=== PATIENT | female | born 1990 | race African-American/Black ===

== ENCOUNTER 2016-09-28 21:14 | Emergency (ER) | payer OTHER ==
[~2016-09-28] VITALS: Ht 170.2 cm; Wt 59.0 kg
[~2016-09-28 21:14] MED LIST: 3-DAY VAGINAL C21 GM VAGIN; ACYCLOVIR400 MG ORAL; BACTRIM-DS1 EA ORAL; CEPHALEXIN500 MG ORAL; CLINDAMYCIN PHO30 GM TP; DIFLUCAN100 MG ORAL; DIFLUCAN150 MG PO; DOXYCYCLINE MO100 MG ORAL; FLUCONAZOLE150 MG ORAL; LANTUS SOL100 UNIT/1 SUBQ; MACROBID100 MG ORAL; METROGEL-VAGINA70 G1 VAGIN; METRONIDAZOLE500 MG ORAL; NOVOLOG100 UNIT/3 SUBQ; PHENAZOPYRIDIN200 MG ORAL
[2016-09-28] MEDS ORDERED: IBUPROFEN600 MG ORAL (21:34)
[2016-09-28] MEDS ORDERED: AZITHROMYCIN250 MG ORAL (21:34)
--- NOTE | 2016-09-28 21:35 | Emergency Room Report ---
History of Present Illness General Chief Complaint: Allergic Reaction Source: Patient Present Illness HPI Is a 26-year-old female with history of diabetes. She presents with chief complaint of sore throat. Onset was about 2 hours ago. Hurts with swallowing. She thought maybe an allergic reaction at the sheets and atenolol. She had Tylenol before without issue. No swelling. No fever or chills. Pain is 10 out of 10. She also has been having coughing congestion the last week. No fever or chills. No nausea no vomiting. Allergies: Coded Allergies: No Known Allergies (Unverified , 01/28/14) Patient History Past Medical History: see triage record, old chart reviewed, DM Past Surgical History: other Pertinent Family History: none Social History: Denies: smoking Last Menstrual Period: 09/28/16 Now: No Immunizations: other Reviewed Nursing Documentation: PMH: Agreed, PSxH: Agreed Nursing Documentation-PMH Hx Diabetes: Yes Review of Systems Eye: Denies: blurred vision, eye pain ENT: Reports: throat pain, Denies: ear pain, nose congestion, throat swelling Respiratory: Denies: cough, shortness of breath Cardiovascular: Denies: chest pain, palpitations Gastrointestinal: Denies: abdominal pain, diarrhea, nausea, vomiting Musculoskeletal: Denies: back pain, joint pain Skin: Denies: rash Neurological: Denies: headache, numbness Endocrine: Denies: increased thirst, increased urine Hematologic/Lymphatic: Denies: easy bruising All Other Systems: negative except mentioned in HPI Physical Exam Vital Signs Date Time Temp Pulse Resp B/P Pulse Ox O2 Delivery O2 Flow Rate FiO2 09/28/16 21:17 97.9 112 14 117/72 96 Room Air vitals with tachycardia Sp02 EP Interpretation: reviewed, normal General Appearance: well appearing, no apparent distress, alert Head: normocephalic, atraumatic Eyes: bilateral eye EOMI, bilateral eye PERRL ENT: hearing grossly normal, pharyngeal erythema, tonsillar exudate Neck: full range of motion, supple, no meningismus Respiratory: chest non-tender, lungs clear, normal breath sounds Cardiovascular #1: regular rate, rhythm, no murmur Gastrointestinal: normal bowel sounds, non tender, no mass, no organomegaly, no bruit, non-distended Musculoskeletal: back normal, gait/station normal, normal range of motion Psychiatric: mood/affect normal Skin: warm/dry Medical Decision Making Diagnostic Impression: Primary Impression: Pharyngitis, acute Qualified Codes: J02.9 - Acute pharyngitis, unspecified ER Course Patient presents with sore throat and has exudates erythema. No trismus. No evidence of peritonsillar abscess, retropharyngeal abscess or Jorge angina. Doubt allergic reaction. She is otherwise stable. We'll go ahead and treat with antibiotics. Last Vital Signs Date Time Temp Pulse Resp B/P Pulse Ox O2 Delivery O2 Flow Rate FiO2 09/28/16 21:17 97.9 112 14 117/72 96 Room Air Status: improved Disposition: HOME, SELF-CARE Condition: Stable Scripts Azithromycin* (ZITHROMAX*) 250 Mg Tablet 250 MG ORAL DAILY, #6 TAB 0 Refills Take two tablets by mouth today, then take one tablet by mouth daily for four days Prov: RAFAELA MOTLEY M.D. 09/28/16 Ibuprofen* (MOTRIN*) 600 Mg Tablet 600 MG ORAL THREE TIMES A DAY, #30 TAB 0 Refills Prov: RAFAELA MOTLEY M.D. 09/28/16 Additional Instructions: Followup with your DrMiguel A in 7 days. Increase fluids. Salt water gargle. Return if symptom worsen. RAFAELA MOTLEY M.D. Sep 28, 2016 21:35
[2016-09-28 21:44] VITALS: BP 111/68
[2016-09-28 21:45] VITALS: BP 111/68
== END 2016-09-28 22:00 | disposition home or self-care (01) ==
LOC: EMR 22:00
DX: J02.9 Acute pharyngitis, unspecified (principal); E11.9 Type 2 diabetes mellitus without complications; R05 Cough; Z83.3 Family history of diabetes mellitus
CPT/HCPCS: 99284

== ENCOUNTER 2016-10-02 10:22 | Emergency (ER) | payer OTHER ==
[~2016-10-02] VITALS: Ht 170.2 cm; Wt 59.0 kg
[~2016-10-02 10:22] MED LIST changes: +AZITHROMYCIN250 MG ORAL; +IBUPROFEN600 MG ORAL
[2016-10-02 10:35] VITALS: BP 133/85
[2016-10-02] MEDS ORDERED: PredniSONE 20mg tab ORAL ONE (10:45)
[2016-10-02] MEDS ORDERED: PREDNISONE20 MG ORAL (10:47)
[2016-10-02] MEDS ORDERED: ACETAMINOPHEN-1 EAC1 ORAL (10:48)
[2016-10-02 11:00] VITALS: BP 133/85
--- NOTE | 2016-10-02 11:00 | Emergency Room Report ---
History of Present Illness General Chief Complaint: General Complaint Source: Patient Present Illness HPI Patient present with complaints of sore throat Reports that initially she had a sensation of swelling in her throat last week after eating cantaloupe at a [employer] Patient was here recently it was felt that it was more in line with an infectious pathology The patient was placed on antibiotics after seeing her primary physician Was that the patient had abnormal thyroid mass palpable as well and therefore this morning had blood work and ultrasound being obtained outpatient Patient however presents with ongoing pain especially with swallowing Denies any difficulty breathing denies any fevers denies any change in her voice Allergies: Coded Allergies: No Known Allergies (Unverified , 01/28/14) Patient History Past Medical History: see triage record Pertinent Family History: none Last Menstrual Period: 09/29/2016 Reviewed Nursing Documentation: PMH: Agreed, PSxH: Agreed Nursing Documentation-PMH Past Medical History: No History, Except For Hx Diabetes: Yes Review of Systems All Other Systems: negative except mentioned in HPI Physical Exam Vital Signs Date Time Temp Pulse Resp B/P Pulse Ox O2 Delivery O2 Flow Rate FiO2 10/02/16 10:26 98.4 70 16 133/85 99 Room Air Sp02 EP Interpretation: reviewed, normal General Appearance: well appearing, no apparent distress Head: normocephalic, atraumatic Eyes: bilateral eye EOMI, bilateral eye PERRL ENT: hearing grossly normal, normal pharynx, TMs + canals normal, uvula midline , other - Airway is patent, no stridor Neck: full range of motion, supple, no meningismus, no bony tend, other - On the right aspect of the thyroid gland is a palpable nodule Respiratory: lungs clear, normal breath sounds, no rhonchi, no respiratory distress, no retraction, no accessory muscle use Cardiovascular #1: normal peripheral pulses, regular rate, rhythm, no edema, no gallop, no JVD, no murmur Gastrointestinal: normal bowel sounds, non tender, soft, no mass, no organomegaly, non-distended, no guarding, no hernia, no pulsatile mass, no rebound Musculoskeletal: normal inspection Neurologic: oriented x3, responsive, education dean III-XII nml as tested, motor strength/ tone normal, sensory intact Psychiatric: mood/affect normal Skin: normal color, no rash, warm/dry, palpation normal Lymphatic: normal inspection, no adenopathy Medical Decision Making Diagnostic Impression: Primary Impression: thyroid nodule Additional Impression: dysphagia ER Course Patient's airway is patent There is initially a mixed picture regarding allergic reaction Versus infectious pathology Patient however does not have any stridor no signs of any airway compromise No signs of any vomiting or dysphagia on the exam However there is a palpable thyroid nodule patient's having this worked up as outpatient which is appropriate glucose is over 200 at this time and patient likely requires better glucose control Patient was given initial dose of steroid given her complaints I do not feel that continued steroids would be beneficial given her a type I diabetic status The patient requires close outpatient followup , Last Vital Signs Date Time Temp Pulse Resp B/P Pulse Ox O2 Delivery O2 Flow Rate FiO2 10/02/16 10:35 98.4 70 16 133/85 99 Room Air Status: improved Disposition: HOME, SELF-CARE Condition: Stable Scripts Acetaminophen With Codeine (T#3) (TYLENOL #3 TAB*) Y Tab 1 TAB ORAL Q8H Y for For Pain, #5 TAB Prov: ROBBIE CLAUDIO D.O. 10/02/16 Patient Instructions: Dysphagia, Thyroid Nodule Additional Instructions: Patient is provided with the discharge instructions notified to follow up with primary doctor in the next 2-3 days otherwise return to the er with any worsening symptoms. Please note that this report is being documented using [employer] technology. This can lead to erroneous entry secondary to incorrect interpretation by the dictating instrument. ROBBIE CLAUDIO D.O. Oct 02, 2016 11:00
== END 2016-10-02 11:00 | disposition home or self-care (01) ==
LOC: EMR 10:57
DX: R13.10 Dysphagia, unspecified (principal); E04.1 Nontoxic single thyroid nodule; E11.9 Type 2 diabetes mellitus without complications
CPT/HCPCS: 82962; 99283

== ENCOUNTER 2016-11-12 14:02 | Emergency (ER) | payer OTHER ==
[~2016-11-12] VITALS: Ht 162.6 cm; Wt 49.9 kg
[~2016-11-12 14:02] MED LIST changes: +ACETAMINOPHEN-1 EAC1 ORAL; +PREDNISONE20 MG ORAL
--- NOTE | 2016-11-12 14:52 | Emergency Room Report ---
History of Present Illness General Chief Complaint: General Complaint Source: Patient Present Illness HPI This patient presents by EMS for hypoglycemia. Apparently on arrival to her home the patient's blood sugar was low. The patient also was confused. This patient is a type I diabetic. She states that she was diagnosed with type 1 diabetes at age 11. She is on insulin. She states that about a week and half ago she went to see her primary care physician because she was having high blood sugars. She states that her blood sugar was running in the 300s and 400s. She states that her primary care physician increased her Lantus before bed from 18 units to 26 units. She states that she initially was doing okay with her blood sugar, however, over the last few days she has had some low blood sugars. She states that these typically occur in the morning. However, she is staying up until 1 or 2 AM and then sleeping until around noon or 1 PM. She takes her Lantus at around 8 PM. She states that her sleep cycle is late and she is unable to fall asleep earlier in the night. She denies recent illness. She denies fever or chills. She denies cough or congestion. She has no other complaints. Allergies: Coded Allergies: No Known Allergies (Unverified , 01/28/14) Patient History Past Medical History: see triage record, DM Past Surgical History: none Pertinent Family History: none Social History: Denies: alcohol use, drug use, smoking Now: No Reviewed Nursing Documentation: PMH: Agreed, PSxH: Agreed Nursing Documentation-PMH Hx Cardiac Problems: No Hx Hypertension: No Hx Pacemaker: No Hx COPD: No Hx Diabetes: Yes Hx Cancer: No Hx Gastrointestinal Problems: No Hx Dialysis: No History Of Psychiatric Problem: No Hx Neurological Problems: No Hx Cerebrovascular Accident: No Review of Systems All Other Systems: negative except mentioned in HPI Physical Exam Vital Signs Date Time Temp Pulse Resp B/P Pulse Ox O2 Delivery O2 Flow Rate FiO2 11/12/16 14:01 98.1 78 16 112/60 98 Sp02 EP Interpretation: reviewed, normal General Appearance: no apparent distress, alert, GCS 15, non-toxic Head: normocephalic, atraumatic Eyes: bilateral eye PERRL, bilateral eye normal inspection ENT: hearing grossly normal, normal pharynx, no angioedema, normal voice Neck: full range of motion, supple/symm/no masses Respiratory: chest non-tender, lungs clear, normal breath sounds, speaking full sentences Cardiovascular #1: regular rate, rhythm, no edema Gastrointestinal: normal bowel sounds, non tender, soft, non-distended, no guarding, no rebound Rectal: deferred Musculoskeletal: back normal, gait/station normal, normal range of motion, non- tender Neurologic: alert, oriented x3, responsive, motor strength/tone normal, sensory intact, speech normal Psychiatric: judgement/insight normal, memory normal, mood/affect normal, no suicidal/homicidal ideation Skin: normal color, no rash, warm/dry, well hydrated Medical Decision Making Diagnostic Impression: Primary Impression: Labile blood glucose Additional Impression: Hypoglycemia ER Course This patient is a type I diabetic and presents with labile blood sugar. She did have an increase in her evening Lantus and has been lasting longer because she has been going to bed late and then getting up mid day without eating meals and between. She is essentially missing breakfast and lunch. She has had 2 episodes of hypoglycemia. Likely this is multifactorial to include the increase in the Lantus in addition to the fasting. The patient had been given D50 prior to arrival. The patient's blood sugar on arrival was 133. Patient was given a complex carbohydrate meal. Basic labs were unremarkable. There is evidence of infection or . The patient's blood sugar did remain stable during the rest of the ED course. I will have the patient decreased her evening Lantus to 24 and for an alarm for 9 AM at the latest where she has to get up and eat breakfast. She's also told to follow up closely with her primary care physician and her public health representative. Labs Test 11/12/16 14:35 11/12/16 14:40 White Blood Count 4.9 K/UL (4.8-10.8) Red Blood Count 4.37 M/UL (4.20-5.40) Hemoglobin 13.4 G/DL (12.0-16.0) Hematocrit 41.8 % (37.0-47.0) Mean Corpuscular Volume 96 FL (80-99) Mean Corpuscular Hemoglobin 30.6 PG (27.0-31.0) Mean Corpuscular Hemoglobin Concent 31.9 G/DL (32.0-36.0) Red Cell Distribution Width 11.5 % (11.6-14.8) Platelet Count 308 K/UL (150-450) Mean Platelet Volume 7.0 FL (6.5-10.1) Neutrophils (%) (Auto) 52.5 % (45.0-75.0) Lymphocytes (%) (Auto) 38.0 % (20.0-45.0) Monocytes (%) (Auto) 7.5 % (1.0-10.0) Eosinophils (%) (Auto) 0.9 % (0.0-3.0) Basophils (%) (Auto) 1.2 % (0.0-2.0) Sodium Level 140 mEQ/L (135-145) Potassium Level 3.7 mEQ/L (3.4-4.9) Chloride Level 98 mEQ/L (98-107) Carbon Dioxide Level 32 mEQ/L (20-30) Anion Gap 10 (5-15) Blood Urea Nitrogen 7 mg/dL (7-23) Creatinine 0.8 mg/dL (0.5-0.9) Estimat Glomerular Filtration Rate > 60 mL/min (>60) Glucose Level 142 mg/dL (74-106) Calcium Level 9.5 mg/dL (8.6-10.2) Magnesium Level 1.5 mg/dL (1.7-2.5) Total Bilirubin 0.5 mg/dL (0.0-1.2) Aspartate Amino Transf (AST/SGOT) 15 U/L (5-40) Alanine Aminotransferase (ALT/SGPT) 14 U/L (3-33) Alkaline Phosphatase 47 U/L (35-104) Total Protein 6.3 g/dL (6.6-8.7) Albumin 4.0 g/dL (3.5-5.2) Globulin 2.3 g/dL Albumin/Globulin Ratio 1.7 (1.0-2.7) Acetone Level Negative (NEGATIVE) Urine Color Pale yellow Urine Appearance Clear Urine pH 7 (4.5-8.0) Urine Specific [place] 1.005 (1.005-1.035) Urine Protein Negative (NEGATIVE) Urine Glucose (UA) 2+ (NEGATIVE) Urine Ketones Negative (NEGATIVE) Urine Occult Blood Negative (NEGATIVE) Urine Nitrite Negative (NEGATIVE) Urine Bilirubin Negative (NEGATIVE) Urine Urobilinogen Normal MG/DL (0.0-1.0) Urine Leukocyte Esterase 1+ (NEGATIVE) Urine RBC 0-2 /HPF (0 - 2) Urine WBC 2-4 /HPF (0 - 2) Urine Squamous Epithelial Cells Few /LPF (NONE/OCC) Urine Bacteria Few /HPF (NONE) Urine HCG, Qualitative Negative EKG Diagnostic Results Rate: normal Rhythm: NSR ST Segments: no acute changes Rhythm Strip Diag. Results EP Interpretation: yes Rate: 60's Rhythm: NSR, no PVC's, no ectopy Last Vital Signs Date Time Temp Pulse Resp B/P Pulse Ox O2 Delivery O2 Flow Rate FiO2 11/12/16 14:01 98.1 78 16 112/60 98 Status: improved Disposition: HOME, SELF-CARE Condition: Improved FRANK PATINO D.O. November 12, 2016 14:51
[2016-11-12 14:55] LABS: APPEARANCE,URINE CLEAR; KETONES,URINE NEGATIVE (NEGATIVE); LEUKOCYTE ESTERASE ,URINE 1+ (NEGATIVE); NITRITE,URINE NEGATIVE (NEGATIVE); PH,URINE 7 (4.5-8.0); PROTEIN,URINE NEGATIVE (NEGATIVE); UROBILINOGEN,URINE NORMAL MG/DL (0.0-1.0)
[2016-11-12 15:05] LABS: BASOPHILS % (AUTO) 1.2 % (0.0-2.0); EOSINOPHILS % (AUTO) 0.9 % (0.0-3.0); MEAN CORPUSCULAR HEMOGLOBIN 30.6 PG (27.0-31.0); MEAN CORPUSCULAR HGB CONC 31.9 G/DL (32.0-36.0); MEAN CORPUSCULAR VOLUME 96 FL (80-99); MONOCYTES % (AUTO) 7.5 % (1.0-10.0); NEUTROPHILS % (AUTO) 52.5 % (45.0-75.0); PLATELET COUNT 308 K/UL (150-450); RED BLOOD COUNT 4.37 M/UL (4.20-5.40); RED CELL DISTRIBUTION WIDTH 11.5 % (11.6-14.8); WHITE BLOOD COUNT 4.9 K/UL (4.8-10.8)
[2016-11-12 15:18] LABS: BACTERIA,URINE FEW /HPF; RBC,URINE 0-2 /HPF (0 - 2); SQUAMOUS EPITHELIAL CELL,UR FEW /LPF (NONE/OCC)
[2016-11-12 15:28] LABS: ALANINE AMINOTRANSFERASE 14 U/L (3-33); ALBUMIN/GLOBULIN RATIO 1.7 (1.0-2.7); ANION GAP 10 (5-15); ASPARTATE AMINO TRANSFERASE 15 U/L (5-40); CALCIUM 9.5 mg/dL (8.6-10.2); CARBON DIOXIDE 32 mEQ/L (20-30); CHLORIDE 98 mEQ/L (98-107); CREATININE 0.8 mg/dL (0.5-0.9); GLOMERULAR FILTRATION RATE > 60 mL/min (>60); HEMOLYSIS 1; MAGNESIUM 1.5 mg/dL (1.7-2.5); POTASSIUM 3.7 mEQ/L (3.4-4.9); SODIUM 140 mEQ/L (135-145); TOTAL PROTEIN 6.3 g/dL (6.6-8.7)
[2016-11-12 15:37] VITALS: BP 122/59
[2016-11-12 17:46] VITALS: BP 114/55
--- NOTE | 2016-11-13 17:12 | Cardiology Report ---
APPROVED REPORT EKG Measurement Heart [id number] MA [id number] Normal sinus rhythm with sinus arrhythmia Normal ECG
== END 2016-11-12 17:51 | disposition home or self-care (01) ==
LOC: EDBD 14:02 → EMR 14:35
DX: E10.649 Type 1 diabetes mellitus with hypoglycemia without coma (principal); R09.89 Other specified symptoms and signs involving the circulatory and respiratory systems; Z79.4 Long term (current) use of insulin
CPT/HCPCS: 36415; 80053; 81003; 81025; 82009; 82962; 83735; 85025; 93005; 99283

== ENCOUNTER 2017-08-18 08:33 | Emergency (ER) | payer OTHER ==
[~2017-08-18] VITALS: Ht 170.2 cm; Wt 59.0 kg
[2017-08-18] MEDS ORDERED: NOVOLOG100 UNIT/3 SUBQ (08:39)
[2017-08-18] MEDS ORDERED: LANTUS SOL100 UNIT/1 SUBQ (08:39)
[2017-08-18 08:45] VITALS: BP 126/76
[2017-08-18] MEDS ORDERED: TESSALON PERLE100 MG ORAL (08:50)
--- NOTE | 2017-08-18 08:50 | Emergency Room Report ---
History of Present Illness General Chief Complaint: General Complaint Source: Patient Present Illness HPI 27-year-old female with pmhx diabetes p/w cough for 5 days. Pt states cough is productive, with greenish non bloody sputum. Denies fever chills sob or chest pain. Denies runny nose or myalgias. No sick contacts or recent travel. Patient does not smoke. Patient also complaining of 2 days of vaginal discomfort, states that she may have cut herself, navarrete more when she urinates. also states today noticed thick white vaginal DC. not sexually active. No abdominal pain no flank pain Allergies: Coded Allergies: No Known Allergies (Unverified , 01/28/14) Patient History Past Medical History: see triage record Past Surgical History: none Pertinent Family History: none Last Menstrual Period: 07/22/17 Now: No Reviewed Nursing Documentation: PMH: Agreed, PSxH: Agreed Nursing Documentation-PMH Hx Cardiac Problems: No Hx Hypertension: No Hx Pacemaker: No Hx COPD: No Hx Diabetes: Yes Hx Cancer: No Hx Gastrointestinal Problems: No Hx Dialysis: No Hx Neurological Problems: No Hx Cerebrovascular Accident: No Review of Systems All Other Systems: negative except mentioned in HPI Physical Exam Vital Signs Date Time Temp Pulse Resp B/P (MAP) Pulse Ox O2 Delivery O2 Flow Rate FiO2 08/18/17 08:35 98.1 80 16 126/76 95 Room Air Sp02 EP Interpretation: reviewed, normal General Appearance: normal inspection, well appearing, no apparent distress, alert, GCS 15, non-toxic Head: normocephalic, atraumatic Eyes: bilateral eye normal inspection, bilateral eye PERRL, bilateral eye EOMI ENT: normal ENT inspection, normal pharynx, normal voice, moist mucus membranes Neck: normal inspection, full range of motion, supple Respiratory: normal inspection, lungs clear, normal breath sounds, no respiratory distress, no retraction, no wheezing, speaking full sentences, chest symmetrical Cardiovascular #1: normal inspection, regular rate, rhythm, no edema, normal capillary refill Cardiovascular #2: 2+ radial (R), 2+ radial (L) Gastrointestinal: normal inspection, non tender, soft, non-distended, no guarding Genitourinary: other - thick white vaginal DC. no signs of vaginal laceration. Musculoskeletal: normal inspection, back normal, normal range of motion, non- tender Neurologic: normal inspection, alert, oriented x3, responsive, motor strength/ tone normal, sensory intact, normal gait, speech normal Psychiatric: normal inspection, judgement/insight normal, memory normal Skin: normal inspection, normal color, no rash, warm/dry, well hydrated, normal turgor Medical Decision Making Diagnostic Impression: Primary Impression: Vaginal yeast infection Additional Impression: Cough ER Course 27-year-old female p/w cough for 5 days. Also with vaginal discomfort DDX: Viral URI vs. pneumonia Vaginal laceration/abrasion versus UTI Plan: CXR UA ER course: Patient remains nontoxic, not in resp distress. CXR obtained - no acute infiltrate +yeast infection, given 1 dose fluconazole Disposition: Patient is to be discharged home with a prescription of Catrachita Pal Strict precautions discussed with patient on when to return to the emergency room including hemoptysis, high fevers, chills, SOB, chest pain, abd pain which may indicate severe illness. Patient is to follow up with their primary care doctor within 5 days. Patient agrees with plan. Please note that this Emergency Department Report was dictated using [employer] technology software, occasionally this can lead to erroneous entry secondary to interpretation by the dictation equipment Chest X-ray CXR: Ordered: Yes 1 view Indication: Cough EP interpretation: Yes Interpretation: No consolidation, no effusion, no PTX, no acute cardiopulmonary disease Impression: No acute disease Electronically signed by Mark Paul MD Last Vital Signs Date Time Temp Pulse Resp B/P (MAP) Pulse Ox O2 Delivery O2 Flow Rate FiO2 08/18/17 08:35 98.1 80 16 126/76 95 Room Air Disposition: HOME, SELF-CARE Condition: Improved Scripts Benzonatate* (TESSALON PERLE*) 100 Mg Capsule 100 MG ORAL THREE TIMES A DAY for 7 Days, #21 PERLE 0 Refills Prov: Mark Paul M.D. 08/18/17 Mark Paul M.D. Aug 18, 2017 08:50
[2017-08-18] MEDS ORDERED: Fluconazole 100mg tab ORAL ONE (09:15)
[2017-08-18 09:25] LABS: APPEARANCE,URINE CLEAR; BILIRUBIN, URINE NEGATIVE (NEGATIVE); GLUCOSE, URINE (UA) 4+ (NEGATIVE); KETONES,URINE 1+ (NEGATIVE); LEUKOCYTE ESTERASE ,URINE 1+ (NEGATIVE); NITRITE,URINE NEGATIVE (NEGATIVE); PH,URINE 5 (4.5-8.0); PROTEIN,URINE 1+ (NEGATIVE); UROBILINOGEN,URINE 1 MG/DL (0.0-1.0)
[2017-08-18 09:27] LABS: COLOR,URINE YELLOW
[2017-08-18 09:50] VITALS: BP 126/76
--- NOTE | 2017-08-18 10:05 | Diagnostic Imaging Report ---
Indication: Cough Comparison: None A single view chest radiograph was obtained. Findings: Cardiomediastinal appearance is within normal limits for age. Pulmonary vascularity is appropriate. The diaphragmatic contour is smooth and costophrenic angles are sharp. No pleural effusions are identified. The bones are unremarkable. Impression: No acute findings
== END 2017-08-18 09:50 | disposition home or self-care (01) ==
LOC: EMR 08:40
DX: B37.3 Candidiasis of vulva and vagina (principal); R05 Cough; E11.9 Type 2 diabetes mellitus without complications
CPT/HCPCS: 71045; 81003; 99283

== ENCOUNTER 2017-10-07 21:59 | Emergency (ER) | payer OTHER ==
[~2017-10-07] VITALS: Ht 170.2 cm; Wt 51.3 kg
[~2017-10-07 21:59] MED LIST changes: +TESSALON PERLE100 MG ORAL
[2017-10-07] MEDS ORDERED: ROBAXIN-750750 MG PO (22:54)
[2017-10-07] MEDS ORDERED: IBUPROFEN600 MG ORAL (22:54)
[2017-10-07] MEDS: Methocarbamol 750mg tab ORAL ONE (23:00)
[2017-10-07 23:11] VITALS: BP 100/64
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
== END 2017-10-07 23:12 | disposition home or self-care (01) ==
LOC: EMR 22:48
DX: M54.9 Dorsalgia, unspecified (principal); V43.62XA Car passenger injured in collision with other type car in traffic accident, initial encounter; Y92.410 Unspecified street and highway as the place of occurrence of the external cause
CPT/HCPCS: 99283

== ENCOUNTER 2018-06-20 01:26 | Emergency (ER) | payer OTHER ==
[~2018-06-20] VITALS: Ht 170.2 cm; Wt 59.0 kg
[~2018-06-20 01:26] MED LIST changes: +ROBAXIN-750750 MG PO
[2018-06-20 02:00] VITALS: BP 118/57
[2018-06-20] MEDS ORDERED: Acetaminophen 500mg (ES) tab ORAL ONE (02:15)
[2018-06-20 02:29] LABS: APPEARANCE,URINE SLIGHTLY CLOUDY; BASOPHILS % (AUTO) 1.3 % (0.0-2.0); BILIRUBIN, URINE NEGATIVE (NEGATIVE); COLOR,URINE PALE YELLOW; GLUCOSE, URINE (UA) 4+ (NEGATIVE); HEMATOCRIT 39.6 % (37.0-47.0); HEMOGLOBIN 13.3 G/DL (12.0-16.0); KETONES,URINE NEGATIVE (NEGATIVE); LEUKOCYTE ESTERASE ,URINE NEGATIVE (NEGATIVE); LYMPHOCYTES % (AUTO) 41.7 % (20.0-45.0); MEAN CORPUSCULAR VOLUME 92 FL (80-99); MONOCYTES % (AUTO) 5.2 % (1.0-10.0); NEUTROPHILS % (AUTO) 50.8 % (45.0-75.0); NITRITE,URINE NEGATIVE (NEGATIVE); PH,URINE 6 (4.5-8.0); PLATELET COUNT 284 K/UL (150-450); PROTEIN,URINE 1+ (NEGATIVE); RED BLOOD COUNT 4.33 M/UL (4.20-5.40); RED CELL DISTRIBUTION WIDTH 10.8 % (11.6-14.8); UROBILINOGEN,URINE NORMAL MG/DL (0.0-1.0); WHITE BLOOD COUNT 6.9 K/UL (4.8-10.8)
--- NOTE | 2018-06-20 02:39 | Diagnostic Imaging Report ---
EXAM: XR Chest, 1 View CLINICAL HISTORY: COUGH TECHNIQUE: Frontal view of the chest. COMPARISON: No relevant prior studies available. FINDINGS: Lungs: Unremarkable. No consolidation. Pleural space: Unremarkable. No pneumothorax. Heart: Unremarkable. No cardiomegaly. Mediastinum: Unremarkable. Bones/joints: Unremarkable. IMPRESSION: Normal chest x-ray.
[2018-06-20 02:47] LABS: ALANINE AMINOTRANSFERASE 20 U/L (12-78); ALBUMIN/GLOBULIN RATIO 1.2 (1.0-2.7); ALKALINE PHOSPHATASE 59 U/L (46-116); ANION GAP 5 mmol/L (5-15); ASPARTATE AMINO TRANSFERASE 14 U/L (15-37); BILIRUBIN,TOTAL 0.3 MG/DL (0.2-1.0); BLOOD UREA NITROGEN 12 mg/dL (7-18); CALCIUM 9.1 MG/DL (8.5-10.1); CARBON DIOXIDE 29 MMOL/L (21-32); CHLORIDE 99 MMOL/L (98-107); CREATININE 1.1 MG/DL (0.55-1.30); POTASSIUM 4.5 MMOL/L (3.5-5.1); SODIUM 133 MMOL/L (136-145)
[2018-06-20] MEDS ORDERED: Insulin Human Regular 100units/ml 3ml IV ONE (03:00)
[2018-06-20 03:42] VITALS: BP 132/86
[2018-06-20 03:44] VITALS: BP 132/86
--- NOTE | 2018-06-20 04:18 | Emergency Room Report ---
History of Present Illness General Chief Complaint: Pain Source: Patient Present Illness HPI 28-year-old female presents ED for evaluation. Patient complaining of body aches times one day. States she's been coughing. Cough is productive with yellowish phlegm. Denies fevers or chills. Pain is dull, 5 out of 10, nonradiating. States she is a diabetic. Accu-Chek 495 in triage. States that she takes Humalog with meals and Lantus in the morning. States she is compliant with her medications. Denies dysuria or hematuria. No other aggravating relieving factors. Denies any other associated symptoms Allergies: Coded Allergies: No Known Allergies (Unverified , 01/28/14) Patient History Past Medical History: DM Past Surgical History: none Pertinent Family History: none Social History: Denies: smoking, alcohol use, drug use Last Menstrual Period: may 21, 2018 Now: No Immunizations: UTD Reviewed Nursing Documentation: PMH: Agreed; PSxH: Agreed Nursing Documentation-PMH Hx Cardiac Problems: No Hx Hypertension: No Hx Pacemaker: No Hx COPD: No Hx Diabetes: Yes Hx Cancer: No Hx Gastrointestinal Problems: No Hx Dialysis: No Hx Neurological Problems: No Hx Cerebrovascular Accident: No Review of Systems All Other Systems: negative except mentioned in HPI Physical Exam Vital Signs Date Time Temp Pulse Resp B/P (MAP) Pulse Ox O2 Delivery O2 Flow Rate FiO2 06/20/ 01:32 99.0 87 16 118/57 96 Room Air Sp02 EP Interpretation: reviewed, normal General Appearance: no apparent distress, alert, GCS 15, non-toxic Head: normocephalic, atraumatic Eyes: bilateral eye normal inspection, bilateral eye PERRL ENT: hearing grossly normal, normal pharynx, no angioedema, normal voice Neck: full range of motion, supple/symm/no masses Respiratory: chest non-tender, lungs clear, normal breath sounds, speaking full sentences Cardiovascular #1: regular rate, rhythm, no edema Cardiovascular #2: 2+ carotid (R), 2+ carotid (L), 2+ radial (R), 2+ radial (L) , 2+ dorsalis pedis (R), 2+ dorsalis pedis (L) Gastrointestinal: normal bowel sounds, non tender, soft, non-distended, no guarding, no rebound Rectal: deferred Genitourinary: normal inspection, no CVA tenderness Musculoskeletal: back normal, gait/station normal, normal range of motion, non- tender Neurologic: alert, oriented x3, responsive, motor strength/tone normal, sensory intact, speech normal Psychiatric: judgement/insight normal, memory normal, mood/affect normal, no suicidal/homicidal ideation Reflexes: 3+ bicep (R), 3+ bicep (L), 3+ tricep (R), 3+ tricep (L), 3+ knee (R) , 3+ knee (L) Skin: normal color, no rash, warm/dry, well hydrated Lymphatic: no adenopathy Medical Decision Making Diagnostic Impression: Primary Impression: Hyperglycemia ER Course Hospital Course 28-year-old female presenting to ED with elevated BS. c/o cough and bodyaches Differential diagnoses include: UTI, pneumonia, DKA Clinical course Patient placed on stretcher. On youth nutritional monitor. After initial history and physical I ordered labs, IV fluids, UA, CXR, flu swab, tylenol Labs-glucose > 500, no anion gap, bicarbonate normal, electrolytes ok. no leukocytosis. acetone negative. UA negative Flu swab negative Chest x-rayno acute process Discussed findings with patient. Patient appears nontoxic. Vital stable. Given IV hydration and insulin here. Repeat Accu-Cheks improved. Safe for discharge and close outpatient follow-up She states she has her medications at home i. I feel this is a highly complex case requiring extensive working including EKG/Rhythm strip, Xray/CT/US, Blood/urine lab work, repeat exams while in ED, and administration of strong opiates/narcotics for pain control, admission to hospital or close patient follow up. diagnosis - hyperglycemia Stable and discharged to home. Followup with PMD. Return to ED if symptoms recur or worsen Labs Test 06/20/18 02:05 White Blood Count 6.9 K/UL (4.8-10.8) Red Blood Count 4.33 M/UL (4.20-5.40) Hemoglobin 13.3 G/DL (12.0-16.0) Hematocrit 39.6 % (37.0-47.0) Mean Corpuscular Volume 92 FL (80-99) Mean Corpuscular Hemoglobin 30.8 PG (27.0-31.0) Mean Corpuscular Hemoglobin Concent 33.7 G/DL (32.0-36.0) Red Cell Distribution Width 10.8 % (11.6-14.8) Platelet Count 284 K/UL (150-450) Mean Platelet Volume 6.6 FL (6.5-10.1) Neutrophils (%) (Auto) 50.8 % (45.0-75.0) Lymphocytes (%) (Auto) 41.7 % (20.0-45.0) Monocytes (%) (Auto) 5.2 % (1.0-10.0) Eosinophils (%) (Auto) 1.0 % (0.0-3.0) Basophils (%) (Auto) 1.3 % (0.0-2.0) Urine Color Pale yellow Urine Appearance Slightly cloudy Urine pH 6 (4.5-8.0) Urine Specific [place] 1.015 (1.005-1.035) Urine Protein 1+ (NEGATIVE) Urine Glucose (UA) 4+ (NEGATIVE) Urine Ketones Negative (NEGATIVE) Urine Blood Negative (NEGATIVE) Urine Nitrite Negative (NEGATIVE) Urine Bilirubin Negative (NEGATIVE) Urine Urobilinogen Normal MG/DL (0.0-1.0) Urine Leukocyte Esterase Negative (NEGATIVE) Urine RBC 2-4 /HPF (0 - 2) Urine WBC 0-2 /HPF (0 - 2) Urine Squamous Epithelial Cells Few /LPF (NONE/OCC) Urine Bacteria Few /HPF (NONE) Urine HCG, Qualitative Negative (NEGATIVE) Sodium Level 133 MMOL/L (136-145) Potassium Level 4.5 MMOL/L (3.5-5.1) Chloride Level 99 MMOL/L (98-107) Carbon Dioxide Level 29 MMOL/L (21-32) Anion Gap 5 mmol/L (5-15) Blood Urea Nitrogen 12 mg/dL (7-18) Creatinine 1.1 MG/DL (0.55-1.30) Estimat Glomerular Filtration Rate > 60 mL/min (>60) Glucose Level 539 MG/DL (74-106) Calcium Level 9.1 MG/DL (8.5-10.1) Magnesium Level 1.6 MG/DL (1.8-2.4) Total Bilirubin 0.3 MG/DL (0.2-1.0) Aspartate Amino Transf (AST/SGOT) 14 U/L (15-37) Alanine Aminotransferase (ALT/SGPT) 20 U/L (12-78) Alkaline Phosphatase 59 U/L (46-116) Total Protein 7.4 G/DL (6.4-8.2) Albumin 4.0 G/DL (3.4-5.0) Globulin 3.4 g/dL Albumin/Globulin Ratio 1.2 (1.0-2.7) Acetone Level Negative (NEGATIVE) Chest X-Ray Diagnostic Results Chest X-Ray Diagnostic Results : Chest X-Ray Ordered: Yes # of Views/Limited/Complete: 1 View Indication: Other - cough EP Interpretation: Yes Interpretation: no consolidation, no effusion, no pneumothorax, no acute cardiopulmonary disease Impression: No acute disease Electronically Signed by: Electronically signed by Jamel Brownlee MD Last Vital Signs Date Time Temp Pulse Resp B/P (MAP) Pulse Ox O2 Delivery O2 Flow Rate FiO2 06/20/18 03:44 98.6 63 18 132/86 100 Room Air Status: improved Disposition: HOME, SELF-CARE Condition: Stable Patient Instructions: Hyperglycemia, [id number] Jamel Brownlee MD Jun 20, 2018 04:18
== END 2018-06-20 03:45 | disposition home or self-care (01) ==
LOC: EMR 02:10
DX: E11.65 Type 2 diabetes mellitus with hyperglycemia (principal); R05 Cough; M79.10 Myalgia, unspecified site
CPT/HCPCS: 36415; 71045; 80053; 81003; 81025; 82009; 82962; 83735; 85025; 86710; 96361; 96374; 99284; J1815

== ENCOUNTER 2019-01-08 18:54 | Emergency (ER) | payer OTHER ==
[~2019-01-08] VITALS: Ht 170.2 cm; Wt 57.2 kg
[2019-01-08] MEDS ORDERED: insulin (19:04)
--- NOTE | 2019-01-08 19:15 | NUR ---
ED Nurse Note: pt walked in c/o rash on milad arms and back and shoulder x1 wk and itching, pt reports she recently had glucometer implanted on her abd and she's been getting rash ever since. noted white skin lesions on milad upper arms and back, no sx infection at this time, will cont monitor.
[2019-01-08 19:26] VITALS: BP 132/79
--- NOTE | 2019-01-08 19:32 | Emergency Room Report ---
History of Present Illness General Chief Complaint: Skin Rash/Abscess Source: Medical Record Present Illness HPI 28-year-old female with history of type 1 diabetes currently controlled with insulin injection here complaining of pruritus right arm back as well as left lower quadrant of abdomen. Patient reports that it started after she used a new Medtronic insulin infusion denies pain, anaphylaxis, chest pain, shortness of breath, palpitation, exposure to allergens. Denies all other associated symptoms. Has not taken any medication for her symptoms. Allergies: Coded Allergies: No Known Allergies (Unverified , 01/28/14) Patient History Past Medical History: see triage record Past Surgical History: unable to obtain Pertinent Family History: none Last Menstrual Period: 12/18/18 Now: No Immunizations: UTD Reviewed Nursing Documentation: PMH: Agreed; PSxH: Agreed Nursing Documentation-PMH Past Medical History: No History, Except For Hx Cardiac Problems: No Hx Hypertension: No Hx Pacemaker: No Hx COPD: No Hx Diabetes: Yes Hx Cancer: No Hx Gastrointestinal Problems: No Hx Dialysis: No Hx Neurological Problems: No Hx Cerebrovascular Accident: No Review of Systems All Other Systems: negative except mentioned in HPI Physical Exam Vital Signs Date Time Temp Pulse Resp B/P (MAP) Pulse Ox O2 Delivery O2 Flow Rate FiO2 01/08/19 19:00 98.2 76 18 132/79 (96) 100 Room Air Sp02 EP Interpretation: reviewed, normal General Appearance: normal inspection, well appearing, no apparent distress Head: normocephalic, atraumatic Eyes: bilateral eye normal inspection, bilateral eye PERRL ENT: normal ENT inspection, hearing grossly normal, normal pharynx Neck: normal inspection, full range of motion, supple Respiratory: normal inspection, chest non-tender, lungs clear, no rhonchi, no wheezing Cardiovascular #1: normal inspection, normal peripheral pulses, no edema, no JVD, no murmur Gastrointestinal: normal inspection, soft, no mass Genitourinary: no CVA tenderness Musculoskeletal: normal inspection, back normal Neurologic: normal inspection, alert, oriented x3 Psychiatric: normal inspection, judgement/insight normal, memory normal Skin: rash - Eczema left lower quadrant, right upper back, right arm Lymphatic: normal inspection, no adenopathy Medical Decision Making PA Attestation All my diagnosis and treatment plans were reviewed ad discussed with my supervising physician Dr. Colianno Diagnostic Impression: Primary Impression: Contact dermatitis ER Course 28-year-old female with history of type 1 diabetes currently controlled with insulin injection here complaining of pruritus right arm back as well as left lower quadrant of abdomen. Patient reports that it started after she used a new Medtronic insulin infusion denies pain, anaphylaxis, chest pain, shortness of breath, palpitation, exposure to allergens. Denies all other associated symptoms. Has not taken any medication for her symptoms. Ddx considered but are not limited to: Eczema, scabies, lice, Vital signs: are WNL, pt. is afebrile H&PE are most consistent with: Contact dermatitis ORDERS: triamcinolone cream, Benadryl ED INTERVENTIONS: None required at this time. DISCHARGE: At this time pt. is stable for d/c to home. Will provide printed patient care instructions, and any necessary prescriptions. Care plan and follow up instructions have been discussed with the patient prior to discharge. Change with your primary care physician before changing the tape around your infusion take medication as directed Last Vital Signs Date Time Temp Pulse Resp B/P (MAP) Pulse Ox O2 Delivery O2 Flow Rate FiO2 01/08/19 19:26 98.2 75 18 132/79 100 Room Air Disposition: HOME, SELF-CARE Condition: Stable Scripts Triamcinolone Acet (Triamcinolone Acetonide) 15 Gm Cream..g. 2 GM APPLIC BID, #60 GM Prov: Nick Lincoln 01/08/19 Diphenhydramine Hcl* (BENADRYL*) 25 Mg Capsule 25 MG ORAL Q6H PRN for Itching, #20 CAP Prov: Nick Lincoln 01/08/19 Patient Instructions: Contact Dermatitis, Tyye-my-Waay Additional Instructions: See your primary doctor before changing to taper around your insulin injection site. Nick Lincoln Jan 08, 2019 19:32
[2019-01-08] MEDS ORDERED: BENADRYL25 MG ORAL (19:33)
[2019-01-08] MEDS ORDERED: KENALOG 0.025%15 GM APPLIC (19:33)
[2019-01-08 20:00] VITALS: BP 127/56
--- NOTE | 2019-01-08 20:00 | NUR ---
ED Nurse Note: Pt cleared to be d/c per ERMD, pt discharge and aftercare instruction w/ prescription provided, pt education done via discussion and handout, pt advised to follow up with pcp or return to ed if changes in condition, pt verbalized understanding and agrees with plan, vss, ambulatory w/ steady gait left w/ all belongings.
== END 2019-01-08 20:00 | disposition home or self-care (01) ==
LOC: EMR 19:19
DX: L25.8 Unspecified contact dermatitis due to other agents (principal); E11.9 Type 2 diabetes mellitus without complications; Z79.4 Long term (current) use of insulin
CPT/HCPCS: 99282

== ENCOUNTER 2019-03-10 19:31 | Emergency (ER) | payer OTHER ==
[~2019-03-10] VITALS: Ht 170.2 cm; Wt 58.5 kg
[~2019-03-10 19:31] MED LIST changes: +BENADRYL25 MG ORAL; +KENALOG 0.025%15 GM APPLIC; +insulin
[2019-03-10 19:42] VITALS: BP 135/81
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
[2019-03-10] MEDS ORDERED: ROBAXIN-750750 MG PO (20:13)
[2019-03-10] MEDS ORDERED: ACETAMINOPHEN500 M3 ORAL (20:13)
[2019-03-10] MEDS ORDERED: IBUPROFEN600 MG ORAL (20:13)
[2019-03-10] MEDS ORDERED: Ketorolac 30mg Inj IM ONE (20:15)
--- NOTE | 2019-03-10 20:15 | NUR ---
ED Nurse Note: verified with pt regarding pain medication, pt stated that she is not pregant, pt aware of possible risks and complications, education done, pt verbalized understanding, med adminstered per ERMD order, pt tolerated well.
[2019-03-10 20:22] VITALS: BP 135/81
--- NOTE | 2019-03-10 20:22 | NUR ---
ER DISCHARGE NOTE: pt is cleared to be d/c per ERMD, pt discharge and aftercare instruction given w/ prescription, pt education done via discussion and handout, pt advised to follow up with pcp or return to ed if changes in condition, pt verbalized understanding and agrees with plan, vss, ambulatory w/ steady gait, left w/ all belongings, id band removed.
== END 2019-03-10 20:30 | disposition home or self-care (01) ==
LOC: EMR 20:10
DX: S39.012A Strain of muscle, fascia and tendon of lower back, initial encounter (principal); R51 Headache; M62.830 Muscle spasm of back; E11.9 Type 2 diabetes mellitus without complications; Z91.040 Latex allergy status; V43.52XA Car driver injured in collision with other type car in traffic accident, initial encounter; Y92.410 Unspecified street and highway as the place of occurrence of the external cause
CPT/HCPCS: 96372; 99283; J1885

== ENCOUNTER 2019-04-19 17:39 | Emergency (ER) | payer OTHER ==
[~2019-04-19] VITALS: Ht 170.2 cm; Wt 56.7 kg
[~2019-04-19 17:39] MED LIST changes: +ACETAMINOPHEN500 M3 ORAL
[2019-04-19 18:13] VITALS: BP 113/72
[2019-04-19 18:13] LABS: APPEARANCE,URINE CLEAR; BILIRUBIN, URINE NEGATIVE (NEGATIVE); COLOR,URINE PALE YELLOW; GLUCOSE, URINE (UA) 4+ (NEGATIVE); KETONES,URINE 1+ (NEGATIVE); LEUKOCYTE ESTERASE ,URINE 1+ (NEGATIVE); NITRITE,URINE NEGATIVE (NEGATIVE); PH,URINE 6 (4.5-8.0); PROTEIN,URINE NEGATIVE (NEGATIVE); UROBILINOGEN,URINE NORMAL MG/DL (0.0-1.0)
--- NOTE | 2019-04-19 18:15 | NUR ---
ED Nurse Note:urine sent to labs
--- NOTE | 2019-04-19 18:29 | Emergency Room Report ---
History of Present Illness General Chief Complaint: General Complaint Present Illness HPI 29-year-old female presents to the emergency department complaining of nausea, vomiting and urinary frequency x2 days. Patient denies abdominal pain or tenderness. Patient denies blood in the vomit or having black tarry stools. Patient states she is not sure whether or not she may be . Her last menstrual period was on March 29. Patient denies taking control and states she is sexually active. She denies abdominal pain, dysuria, hematuria or vaginal discharge. She denies fevers or chills. Patient denies recent travel or ill contacts. She denies headache or dizziness. 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 Allergies: Coded Allergies: LATEX (Verified Allergy, Unknown, 03/10/19) skin breaks out Patient History Past Medical History: see triage record, DM - type 1 Past Surgical History: none Pertinent Family History: none Last Menstrual Period: 03/29/2019 Reviewed Nursing Documentation: PMH: Agreed; PSxH: Agreed Nursing Documentation-PMH Hx Cardiac Problems: No Hx Hypertension: No Hx Pacemaker: No Hx COPD: No Hx Diabetes: Yes Hx Cancer: No Hx Gastrointestinal Problems: No Hx Dialysis: No Hx Neurological Problems: No Hx Cerebrovascular Accident: No Review of Systems All Other Systems: negative except mentioned in HPI Physical Exam Vital Signs Date Time Temp Pulse Resp B/P (MAP) Pulse Ox O2 Delivery O2 Flow Rate FiO2 04/19/19 17:45 98.2 86 19 113/72 (86) 100 Room Air Sp02 EP Interpretation: reviewed, normal General Appearance: no apparent distress, alert, GCS 15, non-toxic Head: normocephalic, atraumatic Eyes: bilateral eye normal inspection, bilateral eye PERRL ENT: hearing grossly normal, normal voice Neck: full range of motion Respiratory: chest non-tender, lungs clear, normal breath sounds, speaking full sentences Cardiovascular #1: regular rate, rhythm Gastrointestinal: normal bowel sounds, non tender, soft Rectal: deferred Genitourinary: normal inspection, no CVA tenderness Musculoskeletal: gait/station normal, normal range of motion, non-tender Neurologic: alert, oriented x3, responsive, motor strength/tone normal, sensory intact, speech normal, grossly normal Psychiatric: judgement/insight normal Medical Decision Making PA Attestation Dr. Hardy Is my supervising Physician whom patient management has been discussed with. Diagnostic Impression: Primary Impression: Nausea & vomiting Qualified Codes: R11.2 - Nausea with vomiting, unspecified ER Course 29-year-old female presents to the emergency department complaining of nausea, vomiting and urinary frequency x2 days. Patient denies abdominal pain or tenderness. Patient denies blood in the vomit or having black tarry stools. Patient states she is not sure whether or not she may be . Her last menstrual period was on March 29. Patient denies taking control and states she is sexually active. She denies abdominal pain, dysuria, hematuria or vaginal discharge. She denies fevers or chills. Patient denies recent travel or ill contacts. She denies headache or dizziness. 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 Ddx considered but are not limited to , acute appendicitis, GE, pancreatitis, gallstone, hyperglycemia, ovarian torsion, ectopic , PID tubo-ovarian abscess, cannabinoid induced cyclical vomiting. Vital signs: are WNL, pt. is afebrile H&PE are most consistent with possible UTI vs. . Pt. non-toxic in appearance, NAD, no evidence to suggest acute abdomen on PE. ORDERS: - accu-check: 249 -UA: 4+ glucose. -URINE HCG:Negative ED INTERVENTIONS: -PO zofran 4mg. DISCHARGE: At this time pt. is stable for d/c to home. Will provide printed patient care instructions, and any necessary prescriptions. Care plan and follow up instructions have been discussed with the patient prior to discharge. Labs Test 04/19/19 17:40 Urine Color Pale yellow Urine Appearance Clear Urine pH 6 (4.5-8.0) Urine Specific [place] 1.010 (1.005-1.035) Urine Protein Negative (NEGATIVE) Urine Glucose (UA) 4+ (NEGATIVE) Urine Ketones 1+ (NEGATIVE) Urine Blood Negative (NEGATIVE) Urine Nitrite Negative (NEGATIVE) Urine Bilirubin Negative (NEGATIVE) Urine Urobilinogen Normal MG/DL (0.0-1.0) Urine Leukocyte Esterase 1+ (NEGATIVE) Urine RBC 0-2 /HPF (0 - 2) Urine WBC 0-2 /HPF (0 - 2) Urine Squamous Epithelial Cells Many /LPF (NONE/OCC) Urine Bacteria Few /HPF (NONE) Urine HCG, Qualitative Negative (NEGATIVE) Last Vital Signs Date Time Temp Pulse Resp B/P (MAP) Pulse Ox O2 Delivery O2 Flow Rate FiO2 04/19/19 18:13 98.2 65 19 113/72 100 Room Air Disposition: HOME, SELF-CARE Condition: Stable Scripts Ondansetron Odt* (ZOFRAN ODT*) 4 Mg Tab.rapdis 4 MG BC EVERY 8 HOURS PRN for Nausea & Vomiting, #10 TAB 0 Refills Prov: Ina Wick 04/19/19 Patient Instructions: Nausea and Vomiting, Adult, [id number] Additional Instructions: Take medications as directed. Follow up with a Primary Care Provider in 3-5 days, even if your symptoms have resolved. Return sooner to ED if new symptoms occur, or current symptoms become worse. - Please note that this Emergency Department Report was dictated using [employer] technology software, occasionally this can lead to erroneous entry secondary to interpretation by the dictation equipment. Ina Wick Apr 19, 2019 18:29
[2019-04-19] MEDS ORDERED: ONDANSETRON ODT4 MG BC (18:31)
--- NOTE | 2019-04-19 18:45 | NUR ---
ER DISCHARGE NOTE: Patient is cleared to be discharged per ERMD, pt is aox4, on room air, with stable vital signs. pt was given dc and prescription instructions, pt was able to verbalize understanding. pt is able to ambulate with steady gait. pt took all belongings.
[2019-04-19 18:47] VITALS: BP 113/72
== END 2019-04-19 18:45 | disposition home or self-care (01) ==
LOC: EMR 18:00
DX: R11.2 Nausea with vomiting, unspecified (principal); E10.9 Type 1 diabetes mellitus without complications; Z79.4 Long term (current) use of insulin; Z91.040 Latex allergy status
CPT/HCPCS: 81003; 81025; Z7502; 99283

== ENCOUNTER 2019-08-17 23:44 | Emergency (ER) | payer OTHER ==
[~2019-08-17] VITALS: Ht 170.2 cm; Wt 59.0 kg
[~2019-08-17 23:44] MED LIST changes: +ONDANSETRON ODT4 MG BC
[2019-08-18] VITALS: BP 111/65
--- NOTE | 2019-08-18 | NUR ---
ED Nurse Note: Pt walked in to ED c/o upper abdominal pain, nause and vomiting since yesterday at 1200. Reports yellowish to greenish emesis. Pt has hx of DM I, has not checking her blood sugar for quite sometime. Pt also c/o weakness due to vomiting. BS at triage is 340, MD notified. VSS. S/O at bedside.
--- NOTE | 2019-08-18 00:05 | NUR ---
ED Nurse Note: ERMD at bedside.
--- NOTE | 2019-08-18 00:10 | NUR ---
ED Nurse Note: IV line established. Blood specimen collected and sent to lab.
--- NOTE | 2019-08-18 00:13 | Emergency Room Report ---
History of Present Illness General Chief Complaint: Vomiting Source: Patient Present Illness HPI Disclaimer: Please note that this report is being documented using DRAGON technology. This can lead to erroneous entry secondary to incorrect interpretation by the dictating instrument. HPI: 29-year-old female history of type 1 diabetes presents for evaluation of nausea and vomiting. Symptoms began today approximately noon. She states she had a light lunch after which she felt nauseous, chills and began having nonbilious nonbloody emesis. Unable to hold down any solids or liquids. She ran a testing strips sometime ago and has been dosing herself with insulin blindly. Last dosed herself this morning. She has been in DKA in the past. She notes cramping in the upper abdominal region and periumbilical region. Denies diarrhea, dysuria, hematuria. Denies fevers, chest pain, palpitations. Denies drug or alcohol use PMH: Type 1 diabetes PSH: Denies abdominal surgeries Allergies: Denies Social Hx: Denies drug or alcohol abuse Allergies: Coded Allergies: LATEX (Verified Allergy, Unknown, 03/10/19) skin breaks out Patient History Last Menstrual Period: 07/26/19 Now: No Nursing Documentation-PMH Past Medical History: No History, Except For Hx Cardiac Problems: No Hx Hypertension: No Hx Pacemaker: No Hx COPD: No Hx Diabetes: Yes - type 1 Hx Cancer: No Hx Gastrointestinal Problems: No Hx Dialysis: No Hx Neurological Problems: No Hx Cerebrovascular Accident: No Review of Systems All Other Systems: negative except mentioned in HPI Physical Exam Vital Signs Date Time Temp Pulse Resp B/P (MAP) Pulse Ox O2 Delivery O2 Flow Rate FiO2 08/17/19 23:51 97.5 80 22 111/65 (80) 99 Room Air General: Awake and alert, appears uncomfortable HEENT: NC/AT. EOMI. Cardiovascular: RRR. S1 and S2 normal. No murmur appreciated Resp: Normal work of breathing. No cough, wheezing or crackles appreciated Abdomen: Abdomen is soft, nondistended. Tenderness in the epigastrium and periumbilical region. No masses. No rebound, negative Serna's. Skin: Intact. No abrasions, laceration or rash over the exposed skin MSK: Normal tone and bulk. Moving all extremities. No obvious deformity. Neuro: Awake and alert. Mentating appropriately. Medical Decision Making Diagnostic Impression: Primary Impression: Hyperglycemia Additional Impression: Vomiting ER Course 29-year-old female history of type 1 diabetes presents for evaluation of nausea vomiting beginning approximate 12 hours ago. She arrives with stable vital signs though appears uncomfortable and somewhat fatigued. Differential includes was not limited to gastritis, gastroenteritis, DKA, pancreatitis, cholecystitis, appendicitis, bowel obstruction, UTI, pyelonephritis to name a few. We will start broad metabolic infectious work-up. Will give IV fluids. Initial Accu-Chek on arrival is approximately 370. Laboratory Tests Test 08/18/19 00:00 08/18/19 00:14 08/18/19 02:02 White Blood Count 20.4 K/UL (4.8-10.8) H Red Blood Count 4.36 M/UL (4.20-5.40) Hemoglobin 14.0 G/DL (12.0-16.0) Hematocrit 40.3 % (37.0-47.0) Mean Corpuscular Volume 92 FL (80-99) Mean Corpuscular Hemoglobin 32.2 PG (27.0-31.0) H Mean Corpuscular Hemoglobin Concent 34.8 G/DL (32.0-36.0) Red Cell Distribution Width 10.5 % (11.6-14.8) L Platelet Count 168 K/UL (150-450) Mean Platelet Volume 7.2 FL (6.5-10.1) Neutrophils (%) (Auto) % (45.0-75.0) Lymphocytes (%) (Auto) % (20.0-45.0) Monocytes (%) (Auto) % (1.0-10.0) Eosinophils (%) (Auto) % (0.0-3.0) Basophils (%) (Auto) % (0.0-2.0) Differential Total Cells Counted 100 Neutrophils % (Manual) 88 % (45-75) H Lymphocytes % (Manual) 8 % (20-45) L Monocytes % (Manual) 4 % (1-10) Eosinophils % (Manual) 0 % (0-3) Basophils % (Manual) 0 % (0-2) Band Neutrophils 0 % (0-8) Platelet Estimate Adequate Platelet Morphology Normal Sodium Level 137 MMOL/L (136-145) 140 MMOL/L (136-145) Potassium Level 4.7 MMOL/L (3.5-5.1) 4.5 MMOL/L (3.5-5.1) Chloride Level 100 MMOL/L (98-107) 106 MMOL/L (98-107) Carbon Dioxide Level 17 MMOL/L (21-32) L 18 MMOL/L (21-32) L Anion Gap 20 mmol/L (5-15) H 16 mmol/L (5-15) H Blood Urea Nitrogen 16 mg/dL (7-18) 16 mg/dL (7-18) Creatinine 1.2 MG/DL (0.55-1.30) 1.1 MG/DL (0.55-1.30) Estimate Glomerular Filtration Rate > 60 mL/min (>60) > 60 mL/min (>60) Glucose Level 421 MG/DL (74-106) H 299 MG/DL (74-106) #H Calcium Level 10.2 MG/DL (8.5-10.1) H 8.8 MG/DL (8.5-10.1) Total Bilirubin 0.9 MG/DL (0.2-1.0) Aspartate Amino Transferase (AST) 48 U/L (15-37) H Alanine Aminotransferase (ALT) 54 U/L (12-78) Alkaline Phosphatase 67 U/L (46-116) Troponin I 0.000 ng/mL (0.000-0.056) Total Protein 8.2 G/DL (6.4-8.2) Albumin 4.8 G/DL (3.4-5.0) Globulin 3.4 g/dL Albumin/Globulin Ratio 1.4 (1.0-2.7) Lipase 89 U/L (73-393) Acetone Level Negative (NEGATIVE) Urine Color Pale yellow Urine Appearance Clear Urine pH 5 (4.5-8.0) Urine Specific [place] 1.020 (1.005-1.035) Urine Protein Negative (NEGATIVE) Urine Glucose (UA) 4+ (NEGATIVE) H Urine Ketones 4+ (NEGATIVE) H Urine Blood Negative (NEGATIVE) Urine Nitrite Negative (NEGATIVE) Urine Bilirubin Negative (NEGATIVE) Urine Urobilinogen Normal MG/DL (0.0-1.0) Urine Leukocyte Esterase Negative (NEGATIVE) Urine HCG, Qualitative Negative (NEGATIVE) Reevaluation Time: 02:54 Last Vital Signs Date Time Temp Pulse Resp B/P (MAP) Pulse Ox O2 Delivery O2 Flow Rate FiO2 08/17/19 23:51 97.5 80 22 111/65 (80) 99 Room Air Reevaluation Impression Left show an elevated white count with a neutrophil predominance which may be a demargination reaction. Initial chemistry showed a slight anion gap at 20 with an elevated glucose of 421. Ketones were negative as were troponin. Patient received IV fluids and IV insulin. Urinalysis unremarkable; no signs of infection, hCG negative. Repeat BMP showed improvement in glucose and anion gap. Another: Subcutaneous dose was ordered. No evidence of DKA. The patient is feeling well has had no further emesis in the emergency department. Will discharge with Zofran and outpatient follow-up. She follows regularly with her latex caster. She states the reason she ran her glucose test drip is because she is currently being transitioned to a continuous implantable meter. I will write her for a temporary meter and test strips in the interim. She can follow-up with her latex caster and PMD. Discussed reasons to return to the emergency department with patient and family. They understand and agree with this treatment plan was discharged home. Disposition: HOME, SELF-CARE Condition: Improved Scripts Ondansetron Odt* (ZOFRAN ODT*) 4 Mg Tab.rapdis 4 MG BC EVERY 8 HOURS PRN for Nausea & Vomiting, #10 TAB 0 Refills Prov: Victor Manuel Jiménez MD 08/18/19 Blood Sugar Diagnostic (ACCU-CHEK DHEERAJ PLUS) 1 Each Strip EACH , #60 Prov: Victor Manuel Jiménez MD 08/18/19 Blood-Glucose Meter, Drum-Type (ACCU-CHEK) 1 Each Kit EACH , #1 Prov: Victor Manuel Jiménez MD 08/18/19 Victor Manuel Jiménez MD Aug 18, 2019 00:13
[2019-08-18 00:20] LABS: HEMATOCRIT 40.3 % (37.0-47.0); MEAN CORPUSCULAR VOLUME 92 FL (80-99); PLATELET COUNT 168 K/UL (150-450); RED BLOOD COUNT 4.36 M/UL (4.20-5.40); RED CELL DISTRIBUTION WIDTH 10.5 % (11.6-14.8); WHITE BLOOD COUNT 20.4 K/UL (4.8-10.8)
[2019-08-18 00:30] LABS: ANION GAP 20 mmol/L (5-15); BLOOD UREA NITROGEN 16 mg/dL (7-18); CALCIUM 10.2 MG/DL (8.5-10.1); CARBON DIOXIDE 17 MMOL/L (21-32); CHLORIDE 100 MMOL/L (98-107); CREATININE 1.2 MG/DL (0.55-1.30); POTASSIUM 4.7 MMOL/L (3.5-5.1); SODIUM 137 MMOL/L (136-145)
[2019-08-18 00:37] LABS: ALANINE AMINOTRANSFERASE 54 U/L (12-78); ALBUMIN 4.8 G/DL (3.4-5.0); ALBUMIN/GLOBULIN RATIO 1.4 (1.0-2.7); ALKALINE PHOSPHATASE 67 U/L (46-116); ASPARTATE AMINO TRANSFERASE 48 U/L (15-37); BILIRUBIN,TOTAL 0.9 MG/DL (0.2-1.0)
[2019-08-18] MEDS ORDERED: Insulin Human Regular 100units/ml 3ml IV ONE (00:45)
[2019-08-18] MEDS ORDERED: ACCU-CHEK1 EAC5 MC (01:15)
[2019-08-18] MEDS ORDERED: ACCU-CHEK AVIV1 EAC1 MC (01:15)
[2019-08-18 01:24] LABS: APPEARANCE,URINE CLEAR; BILIRUBIN, URINE NEGATIVE (NEGATIVE); COLOR,URINE PALE YELLOW; GLUCOSE, URINE (UA) 4+ (NEGATIVE); KETONES,URINE 4+ (NEGATIVE); LEUKOCYTE ESTERASE ,URINE NEGATIVE (NEGATIVE); NITRITE,URINE NEGATIVE (NEGATIVE); PH,URINE 5 (4.5-8.0); PROTEIN,URINE NEGATIVE (NEGATIVE); UROBILINOGEN,URINE NORMAL MG/DL (0.0-1.0)
--- NOTE | 2019-08-18 01:25 | NUR ---
ED Nurse Note: Urine specimen collected and sent to lab.
[2019-08-18 02:29] LABS: ANION GAP 16 mmol/L (5-15); BLOOD UREA NITROGEN 16 mg/dL (7-18); CALCIUM 8.8 MG/DL (8.5-10.1); CARBON DIOXIDE 18 MMOL/L (21-32); CHLORIDE 106 MMOL/L (98-107); CREATININE 1.1 MG/DL (0.55-1.30); POTASSIUM 4.5 MMOL/L (3.5-5.1); SODIUM 140 MMOL/L (136-145)
[2019-08-18] MEDS ORDERED: ONDANSETRON ODT4 MG BC (02:33)
[2019-08-18 02:44] VITALS: BP 118/69
--- NOTE | 2019-08-18 02:44 | NUR ---
ED Nurse Note: Pt cleared by ERMD for discharge. DC instructions/prescription was given and explained to pt and verbalized understanding of teachings. All medical deviecs such as ID band and IV removed. Pt is AAO x4, ambulatory and left with all personal belongings. Accompanied by her S/O.
[2019-08-18] MEDS ORDERED: Insulin Human Regular 100units/ml 3ml SUBQ ONE (02:45)
== END 2019-08-18 02:44 | disposition home or self-care (01) ==
LOC: EMR 08-18 00:10
DX: E10.65 Type 1 diabetes mellitus with hyperglycemia (principal); R11.10 Vomiting, unspecified; Z91.040 Latex allergy status
CPT/HCPCS: 36415; 80048; 80053; 81003; 81025; 82009; 82962; 83690; 84484; 85007; 85025; 96361; 96372; 96374; 96375; J1815; J2405; J7030; Z7502; 99284

== ENCOUNTER 2019-11-23 17:16 | Emergency (ER) | payer OTHER ==
[~2019-11-23] VITALS: Ht 170.2 cm; Wt 59.0 kg
[~2019-11-23 17:16] MED LIST changes: +ACCU-CHEK AVIV1 EAC1 MC; +ACCU-CHEK1 EAC5 MC
--- NOTE | 2019-11-23 17:30 | NUR ---
ED Nurse Note: Pt walked in c/o upper abdominal pain 04/15 with n/v since this morning. Pt having shortness of breath with pain. Pt has hx of DM and says her glucose was in the 250s around 1300. Respirations even and unlabored when resting. Vitals stable as documented.
[2019-11-23 17:35] VITALS: BP 122/76
--- NOTE | 2019-11-23 17:36 | Emergency Room Report ---
History of Present Illness General Chief Complaint: Abdominal Pain Source: Patient Present Illness HPI Patient is a 29-year-old female presents after increased generalized abdominal pain and nausea. Reports having increased associated shortness of breath. Prior history of type 1 diabetes currently on Humalog. Reports having decreased appetite as well as increased subjective chills. Denies any diarrhea. Reports having irregular periods and states that she last had menses in September. She reports having some slight vaginal bleeding. Patient works at the [employer] and states that she has been compliant with her insulin. Denies any recent sick contacts. Reports having increased diffuse crampy abdominal pain. Some associated shortness of breath. Allergies: Coded Allergies: LATEX (Verified Allergy, Unknown, 03/10/19) skin breaks out COVID-19 Screening Contact w/high risk pt: No Recent Travel to affected area: No Experienced COVID-19 symptoms?: Yes COVID-19 symptoms experienced: Flu-Like Symptoms COVID-19 Testing performed DRAFTER MECHANICAL: No Patient History Past Medical History: see triage record Last Menstrual Period: september Now: No Reviewed Nursing Documentation: PMH: Agreed; PSxH: Agreed Nursing Documentation-PMH Past Medical History: No History, Except For Hx Cardiac Problems: No Hx Hypertension: No Hx Pacemaker: No Hx COPD: No Hx Diabetes: Yes - type 1 Hx Cancer: No Hx Gastrointestinal Problems: No Hx Dialysis: No Hx Neurological Problems: No Hx Cerebrovascular Accident: No Review of Systems All Other Systems: negative except mentioned in HPI Physical Exam Vital Signs Date Time Temp Pulse Resp B/P (MAP) Pulse Ox O2 Delivery O2 Flow Rate FiO2 11/23/19 17:24 98.4 78 26 118/72 (87) 98 Room Air Sp02 EP Interpretation: reviewed, normal General Appearance: normal inspection, alert, GCS 15, Chronically Ill Head: atraumatic ENT: normal ENT inspection, hearing grossly normal, normal voice Neck: normal inspection, full range of motion, supple, no bony tend Respiratory: normal inspection, lungs clear, normal breath sounds, no respiratory distress, no retraction, no wheezing Cardiovascular #1: regular rate, rhythm, no edema Gastrointestinal: normal inspection, normal bowel sounds, non tender, soft, no guarding, no hernia Genitourinary: no CVA tenderness Musculoskeletal: normal inspection, back normal, normal range of motion Neurologic: alert, motor strength/tone normal, stone gluer III-XII nml as tested, oriented x3, sensory intact, responsive, speech normal, normal inspection Psychiatric: normal inspection, judgement/insight normal, mood/affect normal Medical Decision Making Diagnostic Impression: Primary Impression: Abdominal pain Additional Impression: UTI (urinary tract infection) ER Course Patient presented for abdominal pain. Differential diagnoses included Diabetic ketoacidosis, Marijuana hyperemesis, coronavirus infection, ischemic bowel, appendicitis, perforated viscus, abdominal aortic aneurysm, inferior myocardial infarction, viral gastroenteritis among others.Because patient's complexity imaging studies, and laboratory testing ordered. Laboratory testing showed . Electrolytes were unremarkable. No anion gap or signs of DKA. Patient had improvement of symptoms after IV fluids. Lipase was normal White blood count was minimally elevated consistent with a urinary infection. Patient was advised to have outpatient coronavirus testing for further evaluation. She was advised to remain off of work and to self isolate. She advised to return if any worsening condition or other concerns. Labs Test 11/23/19 17:40 11/23/19 18:30 White Blood Count 11.6 K/UL (4.8-10.8) Red Blood Count 4.35 M/UL (4.20-5.40) Hemoglobin 13.7 G/DL (12.0-16.0) Hematocrit 41.4 % (37.0-47.0) Mean Corpuscular Volume 95 FL (80-99) Mean Corpuscular Hemoglobin 31.4 PG (27.0-31.0) Mean Corpuscular Hemoglobin Concent 33.0 G/DL (32.0-36.0) Red Cell Distribution Width 11.4 % (11.6-14.8) Platelet Count 292 K/UL (150-450) Mean Platelet Volume 8.2 FL (6.5-10.1) Neutrophils (%) (Auto) 87.6 % (45.0-75.0) Lymphocytes (%) (Auto) 9.0 % (20.0-45.0) Monocytes (%) (Auto) 2.7 % (1.0-10.0) Eosinophils (%) (Auto) 0.1 % (0.0-3.0) Basophils (%) (Auto) 0.7 % (0.0-2.0) Sodium Level 139 MMOL/L (136-145) Potassium Level 3.5 MMOL/L (3.5-5.1) Chloride Level 102 MMOL/L (98-107) Carbon Dioxide Level 23 MMOL/L (21-32) Anion Gap 14 mmol/L (5-15) Blood Urea Nitrogen 10 mg/dL (7-18) Creatinine 0.9 MG/DL (0.55-1.30) Estimat Glomerular Filtration Rate > 60 mL/min (>60) Glucose Level 252 MG/DL (74-106) Calcium Level 9.7 MG/DL (8.5-10.1) Total Bilirubin 0.9 MG/DL (0.2-1.0) Aspartate Amino Transf (AST/SGOT) 16 U/L (15-37) Alanine Aminotransferase (ALT/SGPT) 21 U/L (12-78) Alkaline Phosphatase 55 U/L (46-116) Troponin I 0.004 ng/mL (0.000-0.056) Total Protein 7.4 G/DL (6.4-8.2) Albumin 4.4 G/DL (3.4-5.0) Globulin 3.0 g/dL Albumin/Globulin Ratio 1.5 (1.0-2.7) Lipase 68 U/L (73-393) Urine Color Pale yellow Urine Appearance Slightly cloudy Urine pH 8 (4.5-8.0) Urine Specific [place] 1.010 (1.005-1.035) Urine Protein 1+ (NEGATIVE) Urine Glucose (UA) 3+ (NEGATIVE) Urine Ketones 4+ (NEGATIVE) Urine Blood 5+ (NEGATIVE) Urine Nitrite Negative (NEGATIVE) Urine Bilirubin Negative (NEGATIVE) Urine Urobilinogen Normal MG/DL (0.0-1.0) Urine Leukocyte Esterase 1+ (NEGATIVE) Urine RBC Tntc /HPF (0 - 2) Urine WBC 5-10 /HPF (0 - 2) Urine Squamous Epithelial Cells Few /LPF (NONE/OCC) Urine Bacteria Few /HPF (NONE) Urine HCG, Qualitative Negative (NEGATIVE) Acetone, Qualitative Positive Last Vital Signs Date Time Temp Pulse Resp B/P (MAP) Pulse Ox O2 Delivery O2 Flow Rate FiO2 11/23/19 17:24 98.4 78 26 118/72 (87) 98 Room Air Status: improved Disposition: HOME, SELF-CARE Condition: Stable Scripts Ondansetron Odt* (ZOFRAN ODT*) 4 Mg Tab.rapdis 4 MG BC EVERY 6 HOURS PRN for Nausea & Vomiting, #10 TAB 0 Refills Prov: Henry Anaya MD 11/23/19 Cephalexin* (KEFLEX*) 500 Mg Capsule 500 MG ORAL EVERY 6 HOURS, #20 CAP Prov: Henry Anaya MD 11/23/19 Henry Anaya MD November 23, 2019 17:36
--- NOTE | 2019-11-23 17:44 | NUR ---
ED Nurse Note: pt aware of the need for urine specimen. She said she can't go to the bathroom now, but will let staff know when she can.
[2019-11-23 18:02] LABS: ANION GAP 14 mmol/L (5-15); BLOOD UREA NITROGEN 10 mg/dL (7-18); CALCIUM 9.7 MG/DL (8.5-10.1); CARBON DIOXIDE 23 MMOL/L (21-32); CHLORIDE 102 MMOL/L (98-107); CREATININE 0.9 MG/DL (0.55-1.30); POTASSIUM 3.5 MMOL/L (3.5-5.1); SODIUM 139 MMOL/L (136-145)
[2019-11-23 18:04] LABS: BASOPHILS % (AUTO) 0.7 % (0.0-2.0); EOSINOPHILS % (AUTO) 0.1 % (0.0-3.0); HEMATOCRIT 41.4 % (37.0-47.0); HEMOGLOBIN 13.7 G/DL (12.0-16.0); MEAN CORPUSCULAR VOLUME 95 FL (80-99); MONOCYTES % (AUTO) 2.7 % (1.0-10.0); NEUTROPHILS % (AUTO) 87.6 % (45.0-75.0); PLATELET COUNT 292 K/UL (150-450); RED BLOOD COUNT 4.35 M/UL (4.20-5.40); RED CELL DISTRIBUTION WIDTH 11.4 % (11.6-14.8); WHITE BLOOD COUNT 11.6 K/UL (4.8-10.8)
[2019-11-23 18:06] LABS: ALANINE AMINOTRANSFERASE 21 U/L (12-78); ALBUMIN 4.4 G/DL (3.4-5.0); ALBUMIN/GLOBULIN RATIO 1.5 (1.0-2.7); ALKALINE PHOSPHATASE 55 U/L (46-116); ASPARTATE AMINO TRANSFERASE 16 U/L (15-37); BILIRUBIN,TOTAL 0.9 MG/DL (0.2-1.0)
--- NOTE | 2019-11-23 18:33 | NUR ---
ED Nurse Note: urine sent to lab
[2019-11-23 18:39] LABS: APPEARANCE,URINE SLIGHTLY CLOUDY; BILIRUBIN, URINE NEGATIVE (NEGATIVE); COLOR,URINE PALE YELLOW; GLUCOSE, URINE (UA) 3+ (NEGATIVE); KETONES,URINE 4+ (NEGATIVE); LEUKOCYTE ESTERASE ,URINE 1+ (NEGATIVE); NITRITE,URINE NEGATIVE (NEGATIVE); PH,URINE 8 (4.5-8.0); PROTEIN,URINE 1+ (NEGATIVE); UROBILINOGEN,URINE NORMAL MG/DL (0.0-1.0)
--- NOTE | 2019-11-23 19:00 | NUR ---
HAND-OFF: Report given to TRINA Baird. Plan of care endorsed.
--- NOTE | 2019-11-23 19:02 | NUR ---
ED Nurse Note: received report from Ariadna MENA. Will resume care of patient. vss, nad, calm and resting.
[2019-11-23 19:03] VITALS: BP 125/68
[2019-11-23] MEDS ORDERED: ONDANSETRON ODT4 MG BC (19:18)
[2019-11-23] MEDS ORDERED: CEPHALEXIN500 MG ORAL (19:18)
[2019-11-23 19:35] VITALS: BP 125/68
--- NOTE | 2019-11-23 19:35 | NUR ---
ER DISCHARGE NOTE: Patient is cleared to be discharged per ERMD, pt is aox4, on room air, with stable vital signs. pt was given dc and prescription instructions, pt was able to verbalize understanding, pt id band and iv site removed without complications. pt is able to ambulate with steady gait. pt took all belongings.
--- NOTE | 2019-11-24 09:01 | Diagnostic Imaging Report ---
Procedure: XRAY Chest 1v Reason for study: Reason For Exam: SOB Comparison films: None. FINDINGS: A single one view chest is obtained. Vascularity is normal. The lung salcido are clear bilaterally. Cardiac and mediastinal silhouette are within normal limits. CP angles are sharp. The bony thorax appear unremarkable. IMPRESSION: UNREMARKABLE ONE VIEW CHEST.
== END 2019-11-23 19:35 | disposition home or self-care (01) ==
LOC: EMR 17:52
DX: N39.0 Urinary tract infection, site not specified (principal); R10.9 Unspecified abdominal pain; R06.02 Shortness of breath; E10.8 Type 1 diabetes mellitus with unspecified complications; Z79.4 Long term (current) use of insulin; Z91.040 Latex allergy status
CPT/HCPCS: 36415; 71045; 80053; 81003; 81025; 82009; 83690; 84484; 85025; 96361; 96374; J2405; J7030; Z7502; 99284

== ENCOUNTER 2020-01-27 17:27 | Emergency (ER) | payer OTHER ==
[~2020-01-27] VITALS: Ht 170.2 cm; Wt 59.0 kg
[2020-01-27 17:53] VITALS: BP 121/81
[2020-01-27 18:20] LABS: BASOPHILS % (AUTO) 1.5 % (0.0-2.0); EOSINOPHILS % (AUTO) 0.2 % (0.0-3.0); HEMATOCRIT 41.9 % (37.0-47.0); HEMOGLOBIN 14.3 G/DL (12.0-16.0); LYMPHOCYTES % (AUTO) 30.9 % (20.0-45.0); MEAN CORPUSCULAR VOLUME 94 FL (80-99); MONOCYTES % (AUTO) 5.3 % (1.0-10.0); NEUTROPHILS % (AUTO) 62.1 % (45.0-75.0); PLATELET COUNT 319 K/UL (150-450); RED BLOOD COUNT 4.45 M/UL (4.20-5.40); RED CELL DISTRIBUTION WIDTH 10.9 % (11.6-14.8); WHITE BLOOD COUNT 8.2 K/UL (4.8-10.8)
[2020-01-27 18:21] LABS: APPEARANCE,URINE SLIGHTLY CLOUDY; BILIRUBIN, URINE NEGATIVE (NEGATIVE); COLOR,URINE AMBER; GLUCOSE, URINE (UA) NEGATIVE (NEGATIVE); KETONES,URINE 3+ (NEGATIVE); LEUKOCYTE ESTERASE ,URINE 1+ (NEGATIVE); NITRITE,URINE NEGATIVE (NEGATIVE); PH,URINE 8 (4.5-8.0); PROTEIN,URINE 1+ (NEGATIVE); UROBILINOGEN,URINE 4 MG/DL (0.0-1.0)
[2020-01-27 18:23] LABS: ANION GAP 8 mmol/L (5-15); BLOOD UREA NITROGEN 8 mg/dL (7-18); CALCIUM 9.5 MG/DL (8.5-10.1); CARBON DIOXIDE 28 MMOL/L (21-32); CHLORIDE 102 MMOL/L (98-107); CREATININE 0.8 MG/DL (0.55-1.30); POTASSIUM 3.7 MMOL/L (3.5-5.1); SODIUM 138 MMOL/L (136-145)
[2020-01-27 18:29] LABS: ALANINE AMINOTRANSFERASE 18 U/L (12-78); ALBUMIN 4.5 G/DL (3.4-5.0); ALBUMIN/GLOBULIN RATIO 1.5 (1.0-2.7); ALKALINE PHOSPHATASE 56 U/L (46-116); ASPARTATE AMINO TRANSFERASE 13 U/L (15-37); BILIRUBIN,TOTAL 0.5 MG/DL (0.2-1.0)
--- NOTE | 2020-01-27 18:37 | Emergency Room Report ---
History of Present Illness General Chief Complaint: Skin Rash/Abscess Source: Patient Present Illness HPI 29-year-old female with history of type 1 diabetes currently taking insulin here complaining of a pruritic rash on chest and upper arms reports that started after he uses a freestyle monitor. Reports that she has been using fungal cream with minimal improvement. Denies any pain at this size. Multiple round lesions noted on chest and multiple exam medic lesions noted on bilateral arms. Denies any nausea vomiting, fever, chills, headache, dizziness, anaphylaxis. Denies chest pain shortness of breath. Denies any cough and congestion. Also reports that her last menstrual period was mid November and is requesting test. Denies any abdominal pain or vaginal bleeding or spotting at this time. Allergies: Coded Allergies: LATEX (Verified Allergy, Unknown, 03/10/19) skin breaks out COVID-19 Screening Contact w/high risk pt: No Recent Travel to affected area: No Experienced COVID-19 symptoms?: No COVID-19 symptoms experienced: Flu-Like Symptoms COVID-19 Testing performed STEVEDORING SUPERVISOR: No Patient History Past Medical History: see triage record Past Surgical History: none Pertinent Family History: none Last Menstrual Period: 11/23/19 Immunizations: UTD Reviewed Nursing Documentation: PMH: Agreed; PSxH: Agreed Nursing Documentation-PMH Hx Cardiac Problems: No Hx Hypertension: No Hx Pacemaker: No Hx COPD: No Hx Diabetes: Yes - type 1 Hx Cancer: No Hx Gastrointestinal Problems: No Hx Dialysis: No Hx Neurological Problems: No Hx Cerebrovascular Accident: No Review of Systems All Other Systems: negative except mentioned in HPI Physical Exam Vital Signs Date Time Temp Pulse Resp B/P (MAP) Pulse Ox O2 Delivery O2 Flow Rate FiO2 01/27/20 17:41 99.0 82 19 121/81 (94) 99 Room Air Sp02 EP Interpretation: reviewed, normal General Appearance: no apparent distress, alert, GCS 15, non-toxic Head: normocephalic, atraumatic Eyes: bilateral eye normal inspection, bilateral eye PERRL ENT: hearing grossly normal, normal pharynx, no angioedema, normal voice Neck: full range of motion, supple/symm/no masses Respiratory: chest non-tender, lungs clear, normal breath sounds, no rhonchi, no respiratory distress, no retraction, no wheezing, speaking full sentences Cardiovascular #1: regular rate, rhythm, no edema, no murmur Gastrointestinal: normal bowel sounds, non tender, soft, non-distended, no guarding, no rebound Rectal: deferred Genitourinary: no CVA tenderness Musculoskeletal: back normal Neurologic: alert, motor strength/tone normal, oriented x3, sensory intact, responsive, speech normal Psychiatric: judgement/insight normal Skin: rash - Multiple circular rash on chest and multiple eczematous rash in both arms Lymphatic: no adenopathy Medical Decision Making PA Attestation All diagnosis and treatment plans were discussed and reviewed by my supervising physician Dr. Beasley Diagnostic Impression: Primary Impression: confirmed by positive urine test Additional Impressions: UTI (urinary tract infection) Contact dermatitis ER Course 29-year-old female with history of type 1 diabetes currently taking insulin here complaining of a pruritic rash on chest and upper arms reports that started after he uses a freestyle monitor. Reports that she has been using fungal cream with minimal improvement. Denies any pain at this size. Multiple round lesions noted on chest and multiple exam medic lesions noted on bilateral arms. Denies any nausea vomiting, fever, chills, headache, dizziness, anaphylaxis. Denies chest pain shortness of breath. Denies any cough and congestion. Also reports that her last menstrual period was mid November and is requesting test. Denies any abdominal pain or vaginal bleeding or spotting at this time. Ddx considered but are not limited to: Eczema, scabies, lice, Vital signs: are WNL, pt. is afebrile H&PE are most consistent with: Contact dermatitis, UTI during , incidental finding of intrauterine via positive urine test ORDERS: CBC, CMP, UA, urine test, triamcinolone cream, clotrimazole cream, Keflex, vitamins ED INTERVENTIONS: None required at this time. DISCHARGE: At this time pt. is stable for d/c to home. Will provide printed patient care instructions, and any necessary prescriptions. Care plan and follow up instructions have been discussed with the patient prior to discharge. Patient take medication as directed, follow primary care provider and SOLDERER TORCH, if worsening symptoms return to the emergency room. I attached a list of women' s clinics for patient to check into for follow-up, percent symptoms return to the emergency room. At this time patient does not need any ultrasound further evaluation regarding patient denies any vaginal bleeding or spotting or pain. Patient agrees with this assessment and plan Last Vital Signs Date Time Temp Pulse Resp B/P (MAP) Pulse Ox O2 Delivery O2 Flow Rate FiO2 01/27/20 17:53 99.0 79 19 121/81 99 Room Air Disposition: HOME, SELF-CARE Condition: Stable Scripts Triamcinolone Acetonide (Triamcinolone Acetonide 0.5% Cream*) 15 Gm Cream..g. 2 GM TP BID, #15 GM Prov: Nick Lincoln 01/27/20 Clotrimazole (Clotrimazole) 30 Gm Cream..g. 2 GM TP BID, #30 GM Prov: Nick Lincoln 01/27/20 Cephalexin* (KEFLEX*) 500 Mg Capsule 500 MG ORAL EVERY 12 HOURS for 7 Days, #14 CAP 0 Refills Prov: Nick Lincoln 01/27/20 No.137/Iron/Folic Acd ( Vitamin Tablet) 1 Each Tablet 1 EACH PO DAILY, #30 TAB Prov: Nick Lincoln 01/27/20 Patient Instructions: Contact Dermatitis, [id number], Urinary Tract Infection , [id number] Additional Instructions: Take medication as directed, follow-up with your SOLDERER TORCH, start vitamins , if worsening symptoms return to the emergency room. Nick Lincoln Jan 27, 2020 18:37
[2020-01-27] MEDS ORDERED: CEPHALEXIN500 MG ORAL (18:40)
[2020-01-27] MEDS ORDERED: TRIAMCINOLONE A15 G1 TP (18:40)
[2020-01-27] MEDS ORDERED: CLOTRIMAZOLE30 GM TP (18:40)
[2020-01-27] MEDS ORDERED: PRENATAL VITAM1 EA10 PO (18:40)
[2020-01-27 18:44] VITALS: BP 131/82
== END 2020-01-27 18:45 | disposition home or self-care (01) ==
LOC: EMR 18:38
DX: L25.9 Unspecified contact dermatitis, unspecified cause (principal); O23.40 Unspecified infection of urinary tract in pregnancy, unspecified trimester; E10.9 Type 1 diabetes mellitus without complications; Z3A.00 Weeks of gestation of pregnancy not specified; Z91.040 Latex allergy status
CPT/HCPCS: 36415; 80053; 81003; 81025; 85025; Z7502; 99283